=== PATIENT | female | born 1980 | race Caucasian/White ===

== ENCOUNTER 2019-07-02 04:34 | Emergency (ER) | payer OTHER ==
[~2019-07-02] VITALS: Ht 160 cm; Wt 68.0 kg
== END 2019-07-02 07:03 | disposition home or self-care (01) ==
LOC: ED 04:34
DX: F17.200 Nicotine dependence, unspecified, uncomplicated (principal); Z88.8 Allergy status to other drugs, medicaments and biological substances
CPT/HCPCS: 73630; 90471; 90715; 99283-25; A9270